=== PATIENT | female | born 1950 | race Caucasian/White ===

== ENCOUNTER 2020-11-21 06:22 | Day surgery (SDC) | payer MEDICARE ==
[2020-11-21] MEDS ORDERED: fentaNYL 100 MCG/2 ML SDV ONE (07:24)
[2020-11-21] MEDS ORDERED: Midazolam 1 MG/ML 2 ML SDV ONE (07:24)
[2020-11-21] MEDS ORDERED: Propofol 200 MG/20 ML SDV ONE (07:24)
[2020-11-21] MEDS ORDERED: Sodium Chloride 0.9% 1,000 ML IV SCH (07:30)
[2020-11-21] MEDS ORDERED: Atropine 0.4 MG/ML SDV ONE (08:15)
--- NOTE | 2020-11-21 09:58 | OR ---
DATE OF PROCEDURE: 11/21/2020 SURGEON: Alejandro Stapleton MD PROCEDURE: Colonoscopy. FINDINGS: Diverticulosis, mild, limited to sigmoid colon without evidence for diverticulitis or bleeding. COMPLICATIONS: None. [employer] REPA[employer]ER: None. PREOPERATIVE DIAGNOSIS: Screening colonoscopy. POSTOPERATIVE DIAGNOSIS: Screening colonoscopy. RISKS: Risks, benefits, alternatives, and limitations including, but not limited to infection, bleeding, perforation, false positives, and false negatives were explained to the patient and she wished to proceed. PROCEDURE IN DETAIL: The patient was placed in left lateral decubitus position. Digital rectal exam was performed without abnormality. Scope was introduced and advanced atraumatically to the ileocecal valve. A photo was taken of the appendiceal orifice. Scope was brought back to the ascending, transverse, descending colon, and retroflexed. No evidence of old or new blood. No masses. No polyps. Diverticulosis would be described as sigmoid colon without evidence of diverticulitis or bleeding. No abnormalities on retroflexion. Greater than 8 minutes was spent removing the scope. The prep was acceptable, approximately 95% of the luminal surface could be seen. The patient tolerated the procedure well. Alejandro Stapleton MD /[id number]
[2020-11-21 10:08] VITALS: BP 111/68; PULSE 81
== END 2020-11-21 09:23 | disposition home or self-care (01) ==
LOC: JP.SDS 06:22
PROVIDERS: ATTEND Surgery
DX: Z12.11 Encounter for screening for malignant neoplasm of colon (principal); K57.30 Diverticulosis of large intestine without perforation or abscess without bleeding; I10 Essential (primary) hypertension; E78.5 Hyperlipidemia, unspecified; Z88.8 Allergy status to other drugs, medicaments and biological substances
CPT/HCPCS: G0121; J0461; J2250; J2704; J3010; J7030

== ENCOUNTER 2023-11-25 08:05 | Day surgery (SDC) | payer MEDICARE ==
[2023-11-25] MEDS: Sodium Chloride 0.9% 1,000 ML IV SCH (08:23)
[2023-11-25] MEDS ORDERED: Propofol 200 MG/20 ML SDV ONE (08:38)
[2023-11-25] MEDS ORDERED: fentaNYL 50 MCG/ML SDV ONE (08:38)
[2023-11-25 10:49] VITALS: BP 125/71; PULSE 61
== END 2023-11-25 10:51 | disposition home or self-care (01) ==
LOC: JP.SDS 08:05
PROVIDERS: ATTEND Surgery
DX: R10.13 Epigastric pain (principal); K21.9 Gastro-esophageal reflux disease without esophagitis; I10 Essential (primary) hypertension; E78.5 Hyperlipidemia, unspecified
CPT/HCPCS: 43239; 88305; J2704; J3010; J7030; 00731-QZ